=== PATIENT | female | born 1965 | race Hispanic/Latino ===

== ENCOUNTER 2024-06-01 00:36 | Emergency (ER) | payer OTHER ==
[~2024-06-01] VITALS: Ht 157.5 cm; Wt 79.4 kg
[2024-06-01 01:06] LABS: BASOPHILS # (AUTO) 0.06 K/uL (0.00-0.20); BASOPHILS % (AUTO) 0.5 % (0.0-5.0); EOSINOPHILS # (AUTO) 0.35 K/uL (0.00-0.70); EOSINOPHILS % (AUTO) 3.2 % (0.0-8.0); HEMATOCRIT 42.4 % (36-48); IMMATURE GRANULOCYTE ABSOLUTE 0.02 K/uL (0-1); LYMPHOCYTES # (AUTO) 2.6 K/uL (1.0-4.8); MEAN CORPUSCULAR HEMOGLOBIN 27.4 pg (27.0-33.0); MEAN CORPUSCULAR HGB CONC 31.6 g/dL (32.0-36.0); MEAN CORPUSCULAR VOLUME 86.7 fL (79-99); MONOCYTES # (AUTO) 0.7 K/uL (0.1-1.0); MONOCYTES % (AUTO) 6.4 % (3.0-13.0); NEUTROPHILS # (AUTO) 7.4 K/uL (1.8-7.7); NEUTROPHILS % (AUTO) 66.7 % (40.0-77.0); PLATELET COUNT (AUTO) 220 K/uL (130-400); RED BLOOD CELL COUNT(AUTO) 4.89 MIL/uL (4.00-5.50); RED CELL DISTRIBUTION WIDTH 14.5 % (11.0-15.5); WHITE BLOOD COUNT (AUTO) 11.1 K/uL (4.8-10.8)
[2024-06-01 01:13] LABS: CREATININE 0.7 mg/dL (0.5-1.0); POTASSIUM 4.1 mmol/L (3.5-5.1)
[2024-06-01 01:28] LABS: B-TYPE NATRIURETIC PEPTIDE 12 pg/mL (0-100)
[2024-06-01] MEDS: NITROGLYCERIN 1GM OINT 1 INCH/1GM TD ONE (01:59)
[2024-06-01] MEDS: ASPIRIN 81MG CHEW TAB PO ONE (01:59)
[2024-06-01] MEDS: atorVAStatin 40 MG TABLET PO ONE (02:00)
[2024-06-01] MEDS: furoSEMIDE 40MG VIAL IV ONE (02:19)
[2024-06-01] MEDS: ketOROlac 15MG/ML VIAL (15MG/ML) IV ONE (03:00)
[2024-06-01 04:00] VITALS: BP 136/74; PULSE 94; RESP 18; TEMP 98.3; O2SAT 98
== END 2024-06-01 04:25 | disposition left against medical advice (07) ==
LOC: EDH 00:36
DX: I50.9 Heart failure, unspecified (principal); R06.00 Dyspnea, unspecified; E11.9 Type 2 diabetes mellitus without complications; E78.00 Pure hypercholesterolemia, unspecified; Z88.5 Allergy status to narcotic agent; Z90.89 Acquired absence of other organs
CPT/HCPCS: 36415; 71045; 80048; 82550; 83880; 84484; 85025; 93005; J1885